=== PATIENT | male | born 2000 | race American Indian/Alaskan Native ===

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

== ENCOUNTER 2021-03-09 19:56 | Emergency (ER) | payer MEDICAID, OTHER ==
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
[2021-03-10 00:48] LABS: Basophils % (Auto) 0.3 % (0.0-1.8); Eosinophils % (Auto) 0.1 % (0.0-4.3); Hematocrit 38.6 % (35.5-45.6); Hemoglobin 12.5 gm/dl (11.8-15.2); Lymphocytes # (Auto) 1.3 K/mm3 (1.2-5.4); Lymphocytes % (Auto) 7.4 % (13.4-35.0); Mean Corpuscular HGB Conc 33 % (32-34); Mean Corpuscular Volume 86 fl (84-94); Monocytes # (Auto) 0.8 K/mm3 (0.0-0.8); Monocytes % (Auto) 4.4 % (0.0-7.3); Platelet Count 568 K/mm3 (140-440); Red Blood Count 4.52 M/mm3 (3.65-5.03); Red Cell Distribution Width 14.2 % (13.2-15.2)
[2021-03-10 01:13] LABS: Alanine Aminotransferase 15 units/L (7-56); Albumin 4.3 g/dL (3.9-5); BUN/Creatinine Ratio 15; Blood Urea Nitrogen 12 mg/dL (9-20); Calcium 9.2 mg/dL (8.4-10.2); Hemolysis Index 4
[2021-03-10 01:14] LABS: Bilirubin,Direct < 0.2 mg/dL (0-0.2)
--- NOTE | 2021-03-10 04:38 | Cat Scan Report ---
CT abdomen pelvis w con INDICATION / CLINICAL INFORMATION: wound drainage; 10 days post-op colostomy reversal. TECHNIQUE: Axial CT imaging of abdomen and pelvis was obtained with IV contrast. Coronal and sagittal reformatte d imaging obtained and reviewed. All CT scans at this location are performed using CT dose reduction for ALARA by means of automated exposure control. COMPARISON: None available. FINDINGS: CT abdomen with contrast demonstrates normal appearance of the liver, spleen, pancreas, kidneys, and adrenal glands. Gallbladder is present and without visible abnormality. No biliary dilatation. Patient reportedly had recent colostomy reversal. Postoperative changes are seen in the left lower qu adrant subcutaneous tissues, presumably at site of previous colostomy, but there is no suggestion of abscess or drainable fluid collection. Midline vertical surgical incision is also noted with postoper ative changes but no suggestion of abscess or drainable fluid collection. CT pelvis with contrast does not demonstrate any mass, free fluid, or focal inflammatory change. Sutu re line is seen in the region of the mid sigmoid colon. Just to the right of the anastomosis, there i s an oval small fluid collection measuring 3.0 x 1.3 cm. The alcala are slightly enhancing so this cou ld represent postoperative abscess or hematoma.. The GI tract is otherwise unremarkable. No evidence for bowel obstruction or abnormal dilatation.. A normal appendix is seen in a retrocecal position, mid right abdomen. Visualized lung bases are clear. Review of osseous structures are unremarkable. IMPRESSION: 1. No evidence of abnormal fluid collection or abscess to account for the complaint of wound drainage following colostomy reversal. 2. Small oval fluid collection is seen in the deep pelvis midline, just to the right of the sigmoid a nastomosis. This could represent very small abscess or postoperative hematoma 3. No other significant finding. Signer Name: Farrah German MD Signed: 03/10/2021 4:33 AM Workstation Name: [id number]
[2021-03-10] MEDS ORDERED: PIPERACIL/TAZOBACTA 4.5/NS 100 4.5 GM/100 ML VIAL IV ONE (05:52)
[2021-03-10 06:16] VITALS: BP 112/57
== END 2021-03-10 07:44 | disposition other institution (70) ==
LOC: ED 19:56
DX: T81.31XA Disruption of external operation (surgical) wound, not elsewhere classified, initial encounter (principal); Z98.890 Other specified postprocedural states; Y92.89 Other specified places as the place of occurrence of the external cause
CPT/HCPCS: 36415; 74177; 80048; 80076; 85025; 96365; 99285; J2543; Q9967